=== PATIENT | male | born 1985 | race Hispanic/Latino ===

== ENCOUNTER 2025-04-08 13:31 | Emergency (ER) | payer OTHER, SELFPAY ==
[2025-04-08 13:34] VITALS: BP 148/103
[2025-04-08 16:48] VITALS: BP 129/102
[2025-04-08 17:00] VITALS: BP 140/112
--- NOTE | 2025-04-08 17:06 | ED.GENMED ---
History of Present Illness
General
Chief Complaint: Chest Pain
Time Seen by Provider: 04/08/25 16:46
History of Present Illness
History of Present Illness:
Patient presents to the emergency department with dizziness and chest pain. Symptoms started yesterday. States he returned this morning from a trip to [place] where he was at a wedding. Notes consuming some alcohol and eating a lot over the
weekend. Today he was having some mild intermittent right sided chest discomfort worse with inspiration. No shortness of breath. He also notes feeling lightheaded and dizzy. States it only occurs when he is moving his head. Notes that his
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 Denies blurry vision. Denies change in speech. Denies numbness, tingling, weakness
Past History
Past History
ED Past Medical History: None
ED Past Surgical History: None
Social History
Tobacco: Former smoker
Alcohol: Occasional
Personal:
Living: with family
Family History
Family History: CAD (Father at an advanced age); Negative Diabetes, Hypertension or Early CAD
Phy Exam
Physical Exam
Physical Exam:
GENERAL APPEARANCE: NAD, well developed/ well nourished
EYES lids/conjunctiva normal
EARS/NOSE/THROAT Mucous membranes moist, uvula midline without oral pharyngeal erythema, exudate or swelling
HEAD/NECK normocephalic atraumatic, neck is supple.
RESPIRATORY respiratory effort normal, speaks in full sentences, no accessory muscle use. Lungs clear to auscultation without rhonchi, wheezes, rales
CARDIAC Regular rate and rhythm, no edema.
ABDOMINAL Soft, ND/NT. No pulsatile masses on exam, rebound tenderness, Alcazar sign or pain over Mcburney's point.
MUSCLES/EXTREMITIES No abnormal range of motion, no swelling.
SKIN Warm, pink and dry. No rashes
NEUROLOGICAL Speech is clear and appropriate. Normal level of consciousness. Cranial nerves II through XII intact. No nystagmus. [place]ar-Hallpike testing is negative. 5/5 strength in all extremities. Sensation is intact to light touch throughout.
No dysmetria or ataxia.
PSYCH Normal mood and affect. Judgement/competence is appropriate
Scores
Heart Score for Chest Pain Patients
STEMI patient?: Not applicable
Course
Orders/Labs/Results
Orders:
Orders
04/08/25 13:33
Electrocardiogram (*1) Urgent
Reason for Study: Chest Pain
04/08/25 13:34
EKG- Treatment ONCE
04/08/25 17:06
0.9% Sodium Chloride 1000 ml [Nss] 1,000 ml IV BOLUS
Meclizine [Antivert] 25 mg PO NOW STA
04/08/25 17:07
Complete Blood Count/With Diff Urgent
Comprehensive Metabolic Panel Urgent
DDimer [D-Dimer] Urgent
Troponin I Urgent
04/08/25 17:44
CR Chest - 2 Views Urgent
Comment:
Reason For Exam: cp
Abnormal Lab Results
04/08/25
17:07
MCH 32.8 H pg
(27.0-31.0)
Glucose 135 H mg/dl
(70-99)
ALT 55 H U/L
(0-50)
04/08/25 17:07
04/08/25 17:07
Vital Signs
Initial and Last Documented VS:
Initial Vital Signs
Temp Pulse Resp BP Pulse Ox
98.2 F 79 16 148/103 96
04/08/25 13:34 04/08/25 13:34 04/08/25 13:34 04/08/25 13:34 04/08/25 13:34
Last Documented Vital Signs
Temp Pulse Resp BP Pulse Ox
98.4 F 74 17 131/100 97
04/08/25 18:35 04/08/25 19:34 04/08/25 19:34 04/08/25 19:46 04/08/25 19:34
*Pulse Oximetry
SaO2: 96
Oxygen Mode of Delivery: Room air
Patient hypoxic: no
*Critical Care Note
Total Time (30-74mins, 75-104mins- exclusive of procedures): Not Applicable
ED Attending Note
ED Attending Note
ED Attending Note:
Patient is overall very well-appearing. He has a nonfocal neurologic exam with intermittent episodes of dizziness worse with head movement. Suspect peripheral cause. Also with atypical right-sided chest pain. D-dimer and troponin are negative
greater than 6 hours from onset of symptoms. Overall low risk with reassuring workup in the emergency department. Patient deemed stable for close outpatient follow-up.
-
Portions of this chart may have been created with voice recognition software.� Occasional wrong word or��sound alike� substitutions may have occurred due to the inherent limitations of voice recognition software.
Discharge Plan
Departure
Patient Disposition: Home (Routine Discharge)
Date of Disposition: 04/08/25
Time of Disposition: 19:27
Patient with high blood pressure during this ER visit?: Yes
Discharge Problem:
Vertigo, Chest pain
Instructions: Vertigo - ED discharge instructions, Chest Pain PCP Follow Up
Prescriptions:
New
meclizine 25 mg tablet
25 mg PO BID PRN (Reason: dizziness) Qty: 14 0RF
Referrals:
Roel Adkins DO [Family Provider, Family Practice]
Charlie Liu MD [Active, Otology]
Activity Restrictions/Additional Instructions:
Take the meclizine as needed for vertigo. Follow-up with the ENT doctor as soon as possible. Return to the emergency department with new or worsening symptoms.
Interventions
Interventions:
*Risk Screen - Suicide Last Done: 04/08/25 13:35
*General Assessment Last Done: 04/08/25 18:24
*Neglect/Abuse Screening Last Done: 04/08/25 13:35
*ED- Fall Risk Assessment Last Done: 04/08/25 18:24
*ED COVID-19 Vaccine History Last Done: 04/08/25 18:25
*Nursing Disposition Last Done: 04/08/25 19:56
ED- Cardiac Assessment Last Done: 04/08/25 18:23
Discharge Date and Time
Discharge Date/Time: 04/08/25 19:57
Print Language: FIJIAN
[2025-04-08 17:08] VITALS: BMI 32.0
[2025-04-08] MEDS: ANTIVERT 25 MG PO (17:18)
[2025-04-08] MEDS: NSS 1000 IV (17:19)
[2025-04-08 17:23] LABS: Hematocrit 46.0 % (39.0-52.0); Hemoglobin 16.6 g/dL (13.0-18.0); Mean Corp Hgb Conc. 36.1 g/dL (33.0-37.0); Mean Corpuscular Volume 90.9 fL (80.0-94.0); Nucleated Red Blood Cells % 0 % (-); Platelet Count 232 10^3/uL (130-400); Red Cell Dist. Width 12.0 % (11.5-14.5)
[2025-04-08 17:40] LABS: D-Dimer < 0.27 ug/mlFEU (0.00-0.50)
[2025-04-08 17:43] LABS: ALT (SGPT) 55 U/L (0-50); AST (SGOT) 40 U/L (17-59); Albumin 4.1 g/dl (3.5-5.0); Alkaline Phosphatase 79 U/L (38-126); Blood Urea Nitrogen 11 mg/dl (9-20); Calcium 9.1 mg/dl (8.4-10.2); Carbon Dioxide 27 mmol/L (22-30); Chloride 104 mmol/L (98-107); Estimated Creatinine Clearance > 125 ml/min; Glucose 135 mg/dl (70-99); Potassium 4.1 mmol/L (3.5-5.1); Sodium 136 mmol/L (135-145); Total Protein 6.9 g/dl (6.3-8.2); eGFR > 60.00
[2025-04-08 17:56] LABS: Troponin I < 0.012 ng/ml
[2025-04-08 18:00] VITALS: BP 125/92
[2025-04-08 19:46] VITALS: BP 131/100
== END 2025-04-08 19:57 | disposition home or self-care (01) ==
LOC: EMR 13:31
PROVIDERS: Student in an Organized Health Care Education/Training Program; EMERGENCY PHYSICIAN Emergency Medicine; FAMILY PHYSICIAN Family Medicine
DX: R42 Dizziness and giddiness (principal); R07.9 Chest pain, unspecified; Z87.891 Personal history of nicotine dependence
CPT/HCPCS: 99285; 96360; 71046; 80053; 84484; 85025; 85379; 93005